=== PATIENT | male | born 1940 | race Caucasian/White ===

== ENCOUNTER 2017-05-21 10:53 | Inpatient (IN) | payer MEDICARE ==
[~2017-05-21] VITALS: Ht 170.2 cm; Wt 108.2 kg
[2017-05-21 11:29] LABS: BASOPHILS 0.2 % (0-2); EOSINOPHILS 1.5 % (0-7); HEMOGLOBIN 12.5 g/dL (13.5-17.5); IMMATURE GRANULOCYTES 0.3 % (0-5); LYMPHOCYTES 23.8 % (15-50); MCH 32.2 pg (26.0-34.0); MCHC 32.9 g/dL (31.0-37.0); MCV 97.9 fL (80.0-100.0); MEAN PLATELET VOLUME 9.3 fL (7.4-10.4); MONOCYTES 9.5 % (2-11); NEUTROPHILS 64.7 % (40-80); PLATELET COUNT 179 10x3/uL (130-400); RBC 3.88 10x6/uL (4.20-6.10); RDW 14.2 % (11.5-14.5); WBC 6.1 10x3/uL (4.8-10.8)
[2017-05-21 12:19] LABS: ANION GAP 9.8 mmol/L (8-16); BILIRUBIN - TOTAL 0.43 mg/dL (0.2-1.3); CALCIUM 8.9 mg/dL (8.5-10.1); CARBON DIOXIDE 31.9 mmol/L (21.0-32.0); CREATININE - SERUM 2.7 mg/dL (0.6-1.3); POTASSIUM - SERUM 4.7 mmol/L (3.5-5.1); PROTEIN - SERUM 7.5 g/dL (6.4-8.2)
--- NOTE | 2017-05-21 16:31 | NUR ---
TRANSFER FROM ER BY STRETCHER. OREINTED TO ROOM. CALL LIGHT IN REACH. WILL CONT. PLAN OF CARE.
[2017-05-21 16:58] VITALS: BP 186/78
[2017-05-21] MEDS ORDERED: CORDARONE200 MG PO (17:03)
[2017-05-21] MEDS ORDERED: COREG 3.1253.125 MG PO (17:05)
[2017-05-21] MEDS ORDERED: FUROSEMIDE40 MG PO (17:05)
[2017-05-21] MEDS ORDERED: CARDURA2 MG PO (17:06)
[2017-05-21] MEDS ORDERED: GLIMEPIRIDE4 MG PO (17:07)
[2017-05-21] MEDS ORDERED: COUMADIN5 MG PO (17:08)
[2017-05-21] MEDS ORDERED: COUMADIN2.5 MG PO (17:10)
[2017-05-21] MEDS ORDERED: LEVEMIR100 U/M1 SC (17:11)
[2017-05-21] MEDS ORDERED: XALATAN 0.0052.5 ML EACH EYE (17:13)
[2017-05-21] MEDS ORDERED: XANAX0.25 MG PO (17:13)
[2017-05-21 17:18] VITALS: BP 186/78; BMI 37.5
[2017-05-21] MEDS ORDERED: AMBIEN5 MG PO (17:42)
[2017-05-21 18:16] LABS: CREATININE - URINE 16.3 mg/dL (30-125); POTASSIUM - URINE 21.7 MMOL/L (12.0-62.0); PRO/CRE RATIO URINE 0.7 mg/g; PROTEIN - URINE 11.2 mg/dL (0.0-11.9)
[2017-05-21 19:09] LABS: APPEARANCE CLEAR (CLEAR); BILIRUBIN NEGATIVE (NEGATIVE); COLOR YELLOW (YELLOW); GLUCOSE NEGATIVE (NEGATIVE); KETONE NEGATIVE (NEGATIVE); LEUKOCYTE ESTERASE NEGATIVE (NEGATIVE); NITRITE NEGATIVE (NEGATIVE); PROTEIN NEGATIVE (NEGATIVE); UROBILINOGEN NORMAL (NORMAL)
--- NOTE | 2017-05-21 19:44 | NUR ---
MARLY HILL SIGN WRITER LETTERER OR PAINTER PAGED FOR CONTINUATION OF HOME MEDS, AWAITING CALL BACK.
[2017-05-21 20:02] VITALS: BP 157/76
--- NOTE | 2017-05-21 21:18 | NUR ---
ANSWERING SERVICE CALLED AGAIN, PAGE OUT TO DR. RASCON. AWAITING CALL BACK.
--- NOTE | 2017-05-21 21:40 | NUR ---
ISIS TORRES APN PAGED, AWAITING CALL BACK.
[2017-05-22 00:35] VITALS: BP 124/62
[2017-05-22 05:38] VITALS: BP 139/74
[2017-05-22 05:46] LABS: BASOPHILS 0.1 % (0-2); EOSINOPHILS 1.6 % (0-7); HEMATOCRIT 39.2 % (42.0-54.0); IMMATURE GRANULOCYTES 0.1 % (0-5); LYMPHOCYTES 27.1 % (15-50); MCH 32.1 pg (26.0-34.0); MCHC 33.2 g/dL (31.0-37.0); MCV 96.8 fL (80.0-100.0); MEAN PLATELET VOLUME 9.9 fL (7.4-10.4); MONOCYTES 10.9 % (2-11); NEUTROPHILS 60.2 % (40-80); PLATELET COUNT 213 10x3/uL (130-400); RBC 4.05 10x6/uL (4.20-6.10); RDW 14.1 % (11.5-14.5); WBC 7.4 10x3/uL (4.8-10.8)
[2017-05-22 06:08] LABS: ALBUMIN 3.8 g/dL (3.4-5.0); ANION GAP 8.4 mmol/L (8-16); BILIRUBIN - TOTAL 0.65 mg/dL (0.2-1.3); CALCIUM 8.8 mg/dL (8.5-10.1); CARBON DIOXIDE 33.4 mmol/L (21.0-32.0); CREATININE - SERUM 2.7 mg/dL (0.6-1.3); PROTEIN - SERUM 7.9 g/dL (6.4-8.2)
[2017-05-22 06:20] LABS: POTASSIUM - SERUM 3.8 mmol/L (3.5-5.1)
--- NOTE | 2017-05-22 07:30 | NUR ---
RECIEVED PT IN BED AAOX4 RESP UNLABORED DENIES ANY NEEDS OR DISCOMFORT NAD NOTED
[2017-05-22 08:23] VITALS: BP 155/70
[2017-05-22 11:36] VITALS: BP 137/67
[2017-05-22 12:32] VITALS: Ht 170.2 cm; Wt 108.2 kg
[2017-05-22 12:38] LABS: INR 2.06 (0.85-1.17); PROTIME 23.2 SECONDS (11.6-15.0)
[2017-05-22 15:49] VITALS: BP 130/69
--- NOTE | 2017-05-22 16:27 | NUR ---
Patient Name: JAZMIN ALVARADO Admission Status: ER Accout number: [id number] Admission Date: 05-21-2017 : 1940 Admission Diagnosis: Attending: LUIS ALFREDO Current LOS: 1 Anticipated DC Date: Planned Disposition: Home Primary Insurance: An[employer] Mobile Discharge Planning Comments: * Is the patient Alert and Oriented? Yes 0 * How many steps to enter\exit or inside your home? O-O/1-I 0 * PCP DR. JW NUNEZ 0 * Pharmacy [facility] ON [address] OR [facility] IN [place] 0 * Preadmission Environment Home with Family 0 * ADLs Independent 0 * Equipment CANE Nebulizer Oxygen Walker 0 * Other Equipment HOME AND PORTABLE OXYGEN UNKNOWN MEDICAL EQUIPMENT PROVIDER 0 * List name and contact numbers for known caregivers / representatives who currently or will assist patient after discharge: ЮЛИЯ ALVARADO, SPOUSE, PATIENTS CELL NUMBER: [phone] 0 * Community resources currently utilized None 0 * Please name any agencies selected above. NONE 0 * Additional services required to return to the preadmission environment? No 0 * Can the patient safely return to the preadmission environment? Yes 0 * Has this patient been hospitalized within the prior 30 days at any hospital? No 0 CM MET WITH PT AND SPUOSE IN ROOM TO DISCUSS DISCHARGE PLANNING AND NEEDS. PT REPORTS LIVING AT HOME INDEPENDENTLY WITH SPOUSE. PT HAS NEBULIZER, HOME AND PORTABLE OXYGEN AND A WALKER AND CANE FROM AN UNKNOWN MEDICAL EQUIPMENT PROVIDER. PT HAS NO OUTSIDE SERVICES ASSISTING IN THE HOME. CM DISCUSSED AVAILABILITY OF HOME HEALTH, REHAB SERVICES AND MEDICAL EQUIPMENT. PT DENIES DISCHARGE NEEDS, REPORTS HIS SPOUSE WILL PICK HIM UP FOR DISCHARGE HOME. Auto Suspension And Steering Mechanic: Alfredito Muñoz
--- NOTE | 2017-05-22 17:07 | NUR ---
FSBS 243 HUMALOG 4 UNITS GIVEN SQ LT ARM
[2017-05-22 19:00] VITALS: BP 150/61
--- NOTE | 2017-05-22 20:14 | NUR ---
RESUMED CARE OF PT, LYING IN BED RESPIRATIONS EVEN AND UNLABORED ON 2LPM ANC. 56 SB ON TELEMETRY. HORNER TO GRAVITY. RIGHT WRIST INFUSING BUMEX @ 10 AND DOBUTAMINE @ 16.3. CALL LIGHT IN REACH. WILL CONITNUE TO MONITOR. SEE NURSE ASSESSMENT.
--- NOTE | 2017-05-22 23:43 | NUR ---
LYING IN BED, CALL LIGHT IN REACH. WILL CONTINUE TO MONITOR.
[2017-05-23] VITALS: BP 139/69
[2017-05-23 04:00] VITALS: BP 122/65
[2017-05-23 06:46] LABS: BASOPHILS 0.1 % (0-2); EOSINOPHILS 1.8 % (0-7); HEMOGLOBIN 13.1 g/dL (13.5-17.5); IMMATURE GRANULOCYTES 0.4 % (0-5); LYMPHOCYTES 23.5 % (15-50); MCH 31.6 pg (26.0-34.0); MCHC 32.8 g/dL (31.0-37.0); MCV 96.6 fL (80.0-100.0); MEAN PLATELET VOLUME 9.9 fL (7.4-10.4); MONOCYTES 13.3 % (2-11); NEUTROPHILS 60.9 % (40-80); PLATELET COUNT 233 10x3/uL (130-400); RBC 4.14 10x6/uL (4.20-6.10); RDW 13.8 % (11.5-14.5); WBC 7.7 10x3/uL (4.8-10.8)
[2017-05-23 07:27] LABS: INR 2.21 (0.85-1.17); PROTIME 24.6 SECONDS (11.6-15.0)
[2017-05-23 07:28] LABS: ALBUMIN 3.6 g/dL (3.4-5.0); ANION GAP 8.4 mmol/L (8-16); BILIRUBIN - TOTAL 0.72 mg/dL (0.2-1.3); CALCIUM 8.4 mg/dL (8.5-10.1); CARBON DIOXIDE 34.2 mmol/L (21.0-32.0); CHOL - HDL RATIO 5.9 ratio (2.3-4.9); CREATININE - SERUM 3.1 mg/dL (0.6-1.3); LDL-HDL RATIO 3.6 ratio (1.5-3.5); POTASSIUM - SERUM 3.6 mmol/L (3.5-5.1); PROTEIN - SERUM 7.8 g/dL (6.4-8.2)
[2017-05-23 07:29] LABS: D-DIMER-QUANTITATIVE 0.64 ug/mLFEU (0.20-0.54)
[2017-05-23 07:31] LABS: HEMOGLOBIN A1C 7.4 % (4.8-6.0)
--- NOTE | 2017-05-23 08:00 | NUR ---
FSBS 191 HUMALOG 2 UNITS GIVEN SQ RT ARM
[2017-05-23 08:25] VITALS: BP 164/91
--- NOTE | 2017-05-23 09:41 | EC ---
PATIENT:JAZMIN ALVARADO DATE OF SERVICE: 05/21/17 SEX: M MEDICAL RECORD: [id number] DATE OF : 36 LOCATION:D.M2 D.211 AGE OF PATIENT: 76 ADMISSION DATE: 05/21/17 REFERRING PHYSICIAN: INTERPRETING PHYSICIAN: JAY JAY HAM MD ECHOCARDIOGRAM REPORT ECHO CHARGES 4 ECHO COMPLETE CLINICAL DIAGNOSIS: CHF H/O AVR ECHOCARDIOGRAPHIC MEASUREMENTS (adult normal given) AC root (d.<3.7cm) 3.6 cm LV Septum d (<1.2 cm> 1.2 cm Valve Excursion 1.2 cm LV Septum (systole) 1.9 cm Left Atria (s.<4.0cm> 4.5 cm LVPW d(<1.2cm) 1.2 cm RV (d.<2.3cm) 2.7 cm LVPW (sytole) 1.5 cm LV diastole(<5.6CM) 5.1 cm MV E-F(>70mm/sec) cm LV systole 3.2 cm LVOT Diameter 1.9 cm MV exc.(>10mm) cm Est.ejection fraction (50-75%) % Pericardial Effusion N DOPPLER: LVIT cm/sec A 36.0 cm/sec E 133 cm/sec LA cm/sec RVSP 49.2 mmHg LVOT 219 cm/sec AOP1/2T m/s Asc. Ao 280 cm/sec RVOT 82.0 cm/sec RA cm/sec PA 131 cm/sec AV Gradient Peak 31.4 mmHg AV Mean 14.4 mmHg AV Area 2.0 cm MV Gradient Peak 8.3 mmHg MV Mean 1.9 mmHg MV Area cm COMMENTS: Groutman: Abbie ZAVALAOE Spanish Language Lecturer: 1 Dr. Ham TAPE# PACS DATE OF SERVICE: 05/21/2017 Echocardiogram FINDINGS: 1. Left ventricular chamber size is within normal limits. Left ventricular systolic function is mildly reduced, overall ejection fraction 40%. 2. Left atrium is enlarged at 4.5 cm. Right atrium and right ventricular chamber sizes are as well mildly dilated. 3. Valvular structures: Aortic valve with present mechanical prosthesis that ECHOCARDIOGRAM REPORT [id number] JAZMIN ALVARADO has normal structure and function in this position. 4. Doppler interrogation reveals mild mitral regurgitation, moderate tricuspid regurgitation, no other valvular insufficiency or stenosis; however, pulmonary systolic pressure is elevated estimated at 49 mmHg. 5. No evidence of pericardial effusion or left ventricular thrombus. TRANSINT:[id number] Voice Confirmation ID: [id number] DOCUMENT ID: [id number] JAY JAY HAM MD at 0941 CC: [id number] DICTATION DATE: 05/22/17 1033 GED INSTRUCTOR: 05/22/17 1316 ADM IN [id number] [place] [address]
--- NOTE | 2017-05-23 09:41 | CN ---
PATIENT NAME:JAZMIN KNOX MEDICAL RECORD: [id number] : 36 LOCATION:D. D.2117 ADMIT DATE: 05/21/17 ACCOUNT: [id number] CONSULTING PHYSICIAN: JAY JAY LABOY MD REFERRING PHYSICIAN: TAMMY RASCON MD DATE OF CONSULTATION: 05/21/2017 DIAGNOSES: 1. Congestive heart failure. 2. Chronic systolic dysfunction. 3. Cardiomyopathy. 4. Coronary artery disease. 5. Previous coronary artery bypass graft surgery. 6. Previous cardiac stent. 7. Renal insufficiency. 8. Hypertension. 9. Coumadin anticoagulation. HISTORY OF PRESENT ILLNESS: Mr. Knox has a past history of cardiomyopathy, chronic systolic dysfunction and congestive heart failure. He now presents with increasing shortness of breath and increasing lower extremity edema. His chest x-ray is compatible with pulmonary edema. He is not having any chest pain or chest discomfort compatible with angina. Troponin is pending. PHYSICAL EXAMINATION: GENERAL APPEARANCE: Well-nourished, well-developed, appears stated age. Level of distress, comfortable. PSYCHIATRIC: Mental status, alert, normal affect. Orientation, oriented to time, place and person. EYES: Lids and conjunctiva, noninjected. No discharge, no pallor. ENT: Lips, teeth, gums, normal dentition. Oropharynx, no cyanosis, no pallor. NECK: Carotid arteries, bilateral normal upstroke, no bruits, no thrills. JUGULAR VEINS: No jugular venous pressure or distention. CERVICAL LYMPH NODES: Nontender, nonenlarged. THYROID: Not enlarged. Nontender. No nodules. LUNGS: Respiratory effort, unlabored. CHEST: Normal curvature. No thoracic deformity. No chest wall tenderness. Percussion, resonant. Auscultation, clear. No wheezes, no rales, no rhonchi. CARDIOVASCULAR: Precordial exam, nondisplaced. No heaves or pericardial thrills. Rate and rhythm, regular. Heart sounds, normal S1, normal S2. No S3, no gallop, no rub. Systolic murmur, not heard. Diastolic murmur, not heard. EXTREMITIES: No cyanosis, no edema. Peripheral pulses, full and equal in all extremities, except as noted. No bruits appreciated. ABDOMEN: Soft, nondistended. Normal aorta. No bruit. Nontender. No masses. Liver, nontender, no hepatomegaly. Spleen, nontender, no splenomegaly. MUSCULOSKELETAL: No joint tenderness. No joint swelling. No erythema. NEUROLOGICAL: Normal gait, normal strength, normal tone. SKIN: Warm and dry. REVIEW OF SYSTEMS: The patient reports easy bruising but reports no swollen glands. The patient reports no fever, no night sweats, no significant weight gain, no significant weight loss. No significant exercise tolerance. The patient reports no dry eyes, no irritation, no vision change. Patient reports no difficulty hearing and no ear pain. Patient reports no frequent nose bleeds or nose and sinus problems. Patient reports on arm pain on exertion. No CONSULT REPORT [id number] GOODNER,JAZMIN RAY shortness of breath while lying down. No history of heart murmur. Patient reports no cough, no wheezing or coughing up blood. Patient reports no abdominal pain, no vomiting. Normal appetite. No diarrhea and not vomiting blood. No nausea and no constipation. Patient reports no incontinence. No difficulty urinating. No hematuria. No increased frequency. Patient reports no muscle aches. No weakness, no arthralgias, no back pain. No swelling of the extremities. Patient reports no abnormal mole, no jaundice, no rashes. Reports no loss of consciousness. No weakness and no numbness. No seizures, dizziness, or headaches. The patient reports no depression, no sleep disturbance, feeling safe in a relationship and no alcohol abuse. Patient reports on fatigue. Reports no runny nose or sinus pressure. No itching, no hives, and no frequent sneezing. OVERALL IMPRESSION: Congestive heart failure, chronic systolic dysfunction. At this time, we will start him on IV Lasix, IV dobutamine, get an echocardiogram. Most likely, we will not have to proceed with coronary angiography, especially due to renal dysfunction with BUN of 15 and creatinine of 2.7. TRANSINT:[id number] Voice Confirmation ID: [id number] DOCUMENT ID: [id number] JAY JAY LABOY MD at 0941 CC: [id number] DICTATION DATE: 05/21/17 125 ADULT SCHOOL COUNSELOR: 05/21/17 1656 ADM IN [id number] [place] [address]
--- NOTE | 2017-05-23 11:59 | NUR ---
FSBS 297 HUMALOG 6 UNITS GIVEN SQ LT ARM
[2017-05-23 12:04] VITALS: BP 157/75
[2017-05-23 14:30] VITALS: BP 147/85
--- NOTE | 2017-05-23 17:19 | NUR ---
FSBS 250 HUMALOG 4 UNITS GIVEN SQ LT ARM
[2017-05-23 19:00] VITALS: BP 141/67
[2017-05-24 04:00] VITALS: BP 133/75
[2017-05-24 07:54] LABS: BASOPHILS 0 % (0-2); HEMATOCRIT 39.2 % (42.0-54.0); HEMOGLOBIN 13.3 g/dL (13.5-17.5); IMMATURE GRANULOCYTES 0.5 % (0-5); LYMPHOCYTES 26.9 % (15-50); MCH 32.2 pg (26.0-34.0); MCHC 33.9 g/dL (31.0-37.0); MCV 94.9 fL (80.0-100.0); MEAN PLATELET VOLUME 9.8 fL (7.4-10.4); MONOCYTES 10.6 % (2-11); PLATELET COUNT 205 10x3/uL (130-400); RBC 4.13 10x6/uL (4.20-6.10); RDW 13.6 % (11.5-14.5)
[2017-05-24 07:57] LABS: WBC 5.7 10x3/uL (4.8-10.8)
[2017-05-24 08:11] LABS: ALBUMIN 3.4 g/dL (3.4-5.0); ANION GAP 10.4 mmol/L (8-16); BILIRUBIN - TOTAL 0.49 mg/dL (0.2-1.3); CALCIUM 8.5 mg/dL (8.5-10.1); CARBON DIOXIDE 33.3 mmol/L (21.0-32.0); CREATININE - SERUM 2.9 mg/dL (0.6-1.3); POTASSIUM - SERUM 3.7 mmol/L (3.5-5.1); PROTEIN - SERUM 7.6 g/dL (6.4-8.2)
[2017-05-24 08:22] VITALS: BP 131/75
[2017-05-24 12:09] VITALS: BP 145/77
--- NOTE | 2017-05-24 12:30 | NUR ---
HORNER CATH DCD WITH 600CCOP. AND 10CC BULB. WILL MONITOR VOID.
[2017-05-24] MEDS ORDERED: FLOMAX0.4 MG PO ×2 (14:15→14:21)
--- NOTE | 2017-05-24 15:13 | NUR ---
IV AND TELEMETRY DCD. DC PLANS GIVEN. UNDERSTANDING VOICED. ESCORTED TO CAR BY W/C.
== END 2017-05-24 15:14 | disposition home or self-care (01) | DRG 292 ==
LOC: D.ER 10:53 → D.M2 14:51
PROVIDERS: Emergency Medicine; Internal Medicine; Internal Medicine Interventional Cardiology; ADMIT Emergency Medicine
PROC: 0T9B70Z Drainage of Bladder with Drainage Device, Via Natural or Artificial Opening (ICD-10-PCS; principal; 2017-05-21)
DX: I11.0 Hypertensive heart disease with heart failure (principal); N17.9 Acute kidney failure, unspecified; I50.22 Chronic systolic (congestive) heart failure; I42.9 Cardiomyopathy, unspecified; I25.10 Atherosclerotic heart disease of native coronary artery without angina pectoris; Z95.5 Presence of coronary angioplasty implant and graft; Z95.1 Presence of aortocoronary bypass graft; D64.9 Anemia, unspecified; N40.1 Benign prostatic hyperplasia with lower urinary tract symptoms; Z79.01 Long term (current) use of anticoagulants; I08.1 Rheumatic disorders of both mitral and tricuspid valves; Z79.4 Long term (current) use of insulin; I27.2 Other secondary pulmonary hypertension; E11.21 Type 2 diabetes mellitus with diabetic nephropathy

== ENCOUNTER 2017-07-30 08:39 | Outpatient (CLI) | payer MEDICARE ==
[2017-05-22 12:32] VITALS: BMI 36.9
--- NOTE | ~2017-07-30 | HEMODYNAMI ---
PATIENT:JAZMIN ALVARADO MEDICAL RECORD: [id number] : 36 LOCATION:[facility]CAT ADMISSION DATE: 07/30/17 Generatedon:07/30/201712:01 Patient name: JAZMIN ALVARADO Patient #: [id number] SSN: D OB: 1940 Date of study: 07/30/2017 Page: Of Hemodynamic Procedure Report Patient Data Patient Demographics Procedure consent was obtained First Name: JAZMIN Gender: Male Last Name: CHRISTIANO : 1940 Middle Initial: RAY Age: 76 year(s) Patient #: [id number] Race: Unknown Additional ID: [id number] Contact details [address]: [address] [place] [address] State: [place] City: [place] Zip code: [address] Past Medical History Allergies: No known allergies Admission Admission Data Admission Date: 07/30/2017 Admission Time: 8:39 Procedure Procedure Types Cath Procedure Diagnostic Procedure LHC Coronaries w/Grafts PCI Procedure Coronary Stent Initial Miscellaneous Procedures Moderate Sedation up to 30 minutes Procedure Description Procedure Date Procedure Date: 07/30/2017 Procedure Start Time: 11:28 Procedure End Time: 12:00 Procedure Staff Name Function Aung Ham MD Performing Physician Cam Heart RT Scrub Carlitos Cervantes RN Nurse Kassandra Sanchez RT Monitor Procedure Data Cath Procedure Fluoroscopy Diagnostic fluoroscopy Total fluoroscopy Time: time: 13.2 min 13.2 min Diagnostic fluoroscopy Total fluoroscopy dose: 789 dose: 789 mGy mGy Contrast Material Contrast Material Type Amount (ml) Isovue 300 165 Entry Location Entry Primary Successful Side Size Upsize Upsize Entry Closure Succes sful Closure Location (Fr) 1 (Fr) 2 (Fr) Remarks Device Remarks Femoral Right 6 Fr Exoseal artery Short Estimated blood loss: 10 ml Diagnostic catheters Device Type Used For End Catheter Placement Cordis 5Fr Pigtail LV Angiography Catheter (MP) Cordis 5Fr JL 4.0 Left Coronary Catheter (MP) Angiography Cordis 5Fr 3DRC Catheter Internal mammary (MP) arteriography Cordis 5Fr 3DRC Catheter Right Coronary (MP) Angiography Diagnostic Infinity 5Fr SVG Angiography AR 2 MOD catheter Procedure Complications No complications Procedure Medications Medication Administration Route Dosage Oxygen NC 2 l/min Lidocaine 2% added to field 20 Heparin Flush Bag added to field 2 bags (1000units/500ml NS) 0.9% NaCl I.V. 100 ml/hr Versed I.V. 2 mg Fentanyl I.V. 100 mcg Versed I.V. 1 mg Fentanyl I.V. 50 mcg Heparin Bolus I.V. 5000 units Versed I.V. 1 mg Fentanyl I.V. 50 mcg Hemodynamics Rest Heart Rate: 64 (bpm) Snapshots Pre Cath Intra NCS Post Cath Vital Signs Time Heart Resp SPO2 etCO2 NIBP (mmHg) Rhythm Pain Sedation Rate (ipm) (%) (mmHg) Status Level (bpm) 11:14:44 62 18 98 0 165/82(129) NSR 0 (11) 10(A) , No pain 11:19:12 65 17 100 45.1 167/82(140) NSR 0 (11) 10(A) , No pain 11:23:36 57 26 100 39.8 149/77(121) NSR 0 (11) 10(A) , No pain 11:28:02 55 17 98 47.4 131/74(109) NSR 0 (11) 10(A) , No pain 11:32:16 54 18 100 45.8 130/67(103) NSR 0 (11) 9(A) , No pain 11:36:37 56 17 99 37.6 124/61(94) NSR 0 (11) 9(A) , No pain 11:40:57 56 16 99 43.6 115/60(86) NSR 0 (11) 9(A) , No pain 11:45:15 61 17 99 42.9 117/57(93) NSR 0 (11) 9(A) , No pain 11:49:27 57 17 100 0 111/62(98) NSR 0 (11) 9(A) , No pain 11:53:43 53 17 100 0 121/60(94) NSR 0 (11) 10(A) , No pain 11:58:42 57 6 99 44.3 Measuring NSR 0 (11) 10(A) , No pain 11:58:54 61 6 99 42 132/64(102) NSR 0 (11) 10(A) , No pain Medications Time Medication Route Dose Verified Delivered Reason Notes Effectiveness by by 11:20:52 Oxygen NC 2 Aung Buffie used for l/min Jitendra Cervantes RN procedure 11:20:58 Lidocaine 2% added 20ml Aung Aung for local to vial Jitendra Ham MD anesthetic field 11:21:03 Heparin Flush added 2 Aung Aung used for Bag to bags Jitendra Ham MD procedure (1000units/500ml field NS) 11:21:12 0.9% NaCl I.V. 100 Aung Buffie Per physician ml/hr Jitendra Cervantes RN 11:28:55 Versed I.V. 2 mg Aung Buffie for sedation Jitendra Cervantes RN 11:29:01 Fentanyl I.V. 100 Aung Buffie for sedation mcg Jitendra Cervantes RN 11:34:45 Versed I.V. 1 mg Aung Buffie for sedation Jitendra Cervantes RN 11:34:50 Fentanyl I.V. 50 Aung Buffie for sedation mcg Jitendra Cervantes RN 11:38:50 Heparin Bolus I.V. 5000 Aung Buffie for verifi ed units Jitendra Cervantes RN anticoagulation with dr ham 11:42:16 Fentanyl I.V. 50 Aung Buffie for sedation mcg Jitendra Cervantes RN 11:42:20 Versed I.V. 1 mg Aung Buffie for sedation Jitendra Cervantes RN Procedure Log Time Note 11:01:41 Cam Heart RT(R) (CV) sent for patient. Start room use. 11:01:42 Time tracking: Regular hours 11:01:45 Plan of Care:Hemodynamics will remain stable., Cardiac rhythm will remain stable., Comfort level will be maintained., Respiratory function will remain adequate., Patient/ family verbilizes understanding of procedure., Procedure tolerated without complication., Recovers from procedure without complications.. 11:07:48 Patient received from ED to CCL 3 Alert and oriented. Tansferred to table in Supine position. 11:07:49 Warm blankets applied, and jacobo hugger turned on for patient comfort. 11:07:50 Correct patient and procedure confirmed by team. 11:07:50 Signed procedure consent form obtained from patient. 11:07:51 ECG and BP/O2 sat monitors applied to patient. 11:07:52 Full Disclosure recording started 11:13:20 Vital chart was started 11:13:21 Baseline sample Acquired. 11:13:27 Rhythm: sinus rhythm 11:15:21 H&P Date Dictated: 07/30/2017 ER History on chart.. 11:15:23 Pre-procedure instructions explained to patient. 11:15:24 Pre-op teaching completed and patient verbalized understanding. 11:15:25 Family in waiting room. 11:15:28 Patient NPO since Midnight. 11:15:35 Patient allergic to No known allergies 11:15:39 Is the patient allergic to Iodine/contrast media? No. 11:15:52 Is patient on blood thinner?Yes 11:15:56 ACC The patient was administered the following blood thiners within the last 24 hours: ACCPlavix 11:16:00 Patient diabetic? Yes. 11:16:01 If diabetic: On Metformin? No 11:16:05 Previous problem with sedation/anesthesia? No ? 11:16:08 Snore? Yes 11:16:09 Sleep apnea? Yes 11:16:10 Deviated septum? No 11:16:10 Opens mouth fully? Yes 11:16:11 Sticks out tongue? Yes 11:16:20 Airway obstruction? No ? 11:16:24 Dentures? No ? 11:16:41 Pre procedure: right dorsailis pedis pulse 2+ Normal; easily identifiable; not easily obliterated 11:16:43 Patient pain scale 0/10 ?. 11:16:49 IV patent on arrival in left forearm with 0.9% NaCl at O. 11:16:56 Lab results completed and on chart. 11:17:21 Right groin area was prepped with chlora-prep and draped in sterile fashion 11:17:22 Alarms reviewed by R. N. 11:17:22 Sharps counted by scrub and verified by R.N. 11:17:27 Use device set Femoral Dx 11:17:28 Acist Syringe opened to sterile field. 11:17:29 Bag Decanter opened to sterile field. 11:17:29 Medline Cath Pack opened to sterile field. 11:17:30 St Shorty 260cm J .035 wire opened to sterile field. 11:17:31 Acist Hand Control opened to sterile field. 11:17:32 Acist Manifold opened to sterile field. 11:17:32 Diagnostic Infinity 5Fr Multipack catheter opened to sterile field. 11:17:34 Tegaderm 4 x 4 opened to sterile field. 11:17:51 IV Extension Set opened to sterile field. 11:20:52 Oxygen 2 l/min NC was administered by Carlitos Cervantes RN; used for procedure; 11:20:58 Lidocaine 2% 20ml vial added to field was administered by Aung Ham MD; for local anesthetic; 11:21:03 Heparin Flush Bag (1000units/500ml NS) 2 bags added to field was administered by Aung Ham MD; used for procedure; 11:21:12 0.9% NaCl 100 ml/hr I.V. was administered by Carlitos Cervantes RN; Per physician; 11:23:39 Physician paged 11:27:24 Zero performed for pressure channel P1 11:27:28 Final Timeout: patient, procedure, and site verified with staff and physician. All members of the team are in agreement. 11:27:30 Right groin site verified by team. 11:27:32 Physical assessment completed. ASA score P 2 - A patient with mild systemic disease as per Aung Ham MD. 11:27:35 Sedation plan: IV Moderate Sedation Versed, Fentanyl 11:28:49 Procedure started. 11:28:52 Local anesthetic to right femoral artery with Lidocaine 2% by Aung Ham MD.INITIAL ACCESS ONLY 11:28:55 Versed 2 mg I.V. was administered by Carlitos Cervantes RN; for sedation; 11::01 Fentanyl 100 mcg I.V. was administered by Carlitos Cervantes RN; for sedation; 11:29:05 A 6 Fr Short sheath was inserted into the Right Femoral artery 11:29:18 Terumo 6Fr Ashuelot Sheath opened to sterile field. 11:30:42 A Cordis 5Fr Pigtail Catheter (MP) was advanced over the wire and used for LV Angiography. REMOVED. PATIENT HAS MECHANICAL VALVE 11:31:43 A Cordis 5Fr JL 4.0 Catheter (MP) was advanced over the wire and used for Left Coronary Angiography. 11:32:32 Catheter removed. 11:32:38 A Cordis 5Fr 3DRC Catheter (MP) was advanced over the wire and used for Internal mammary arteriography.LAD 11:34:45 Versed 1 mg I.V. was administered by Carlitos Cervantes RN; for sedation; 11:34:50 Fentanyl 50 mcg I.V. was administered by Carlitos Cervantes RN; for sedation; 11:35:35 A Cordis 5Fr 3DRC Catheter (MP) was advanced over the wire and used for Right Coronary Angiography. 11:36:27 Jarrell SceneDocisper J 300cm 0.014 guide wire opened to sterile field. 11:36:36 Fandeavor BasixCompak Inflation Kit opened to sterile field. 11:36:47 Sangamo BioSciencest[employer] Launcher 6Fr AR 2.0 SH guide catheter opened to sterile field. 11:38:26 A Diagnostic Infinity 5Fr AR 2 MOD catheter was advanced over the wire and used for SVG Angiography. UNABLE TO LOCATE ANY VEIN GRAFTS 11:38:38 6 Fr AR 2.0 SH guide catheter was inserted over the wire 11:38:50 Heparin Bolus 5000 units I.V. was administered by Carlitos Cervantes RN; for anticoagulation; verified with dr ham 11:39:13 Procedure type changed to Cath procedure, Diagnostic procedure, LHC, Coronaries w/Grafts, PCI procedure, Coronary Stent Initial, Miscellaneous Procedures, Moderate Sedation up to 30 minutes 11:40:37 WHISPER wire advanced. 11:42:16 Fentanyl 50 mcg I.V. was administered by Carlitos Cervantes RN; for sedation; 11:42:20 Versed 1 mg I.V. was administered by Carlitos Cervantes RN; for sedation; 11:44:36 Inflation number: 1 A Euphora 2.0 x 30 Balloon was prepped and advanced across the Prox RCA, then inflated to 17 RINA for 0:10 (min:sec). 11:44:50 Balloon removed over the wire. 11:46:57 Inflation number: 2 A Euphora 1.5 x 20 Balloon was prepped and advanced across the Prox RCA, then inflated to 21 RINA for 0:07 (min:sec). 11:47:02 Inflation number: 3 The Euphora 1.5 x 20 Balloon was reinflated across the Prox RCA, to 21 RINA for 0:04 (min:sec). 11:47:11 Inflation number: 4 The Euphora 1.5 x 20 Balloon was reinflated across the Prox RCA, to 21 RINA for 0:04 (min:sec). 11:47:31 Inflation number: 5 The Euphora 1.5 x 20 Balloon was reinflated across the Prox RCA, to 21 RINA for 0:04 (min:sec). 11:47:45 Balloon removed over the wire. 11:49:44 Inflation number: 6 The Euphora 2.0 x 30 Balloon was reinflated across the Prox RCA, to 17 RINA for 0:06 (min:sec). 11:50:06 Inflation number: 7 The Euphora 2.0 x 30 Balloon was reinflated across the Prox RCA, to 9 RINA for 0:05 (min:sec). 11:52:13 Inflation Number: 8 A Kanaranzi OTW 2.25 x 34 stent was prepped and advanced across the Prox RCA. The stent was deployed at 11 RINA for 0:06 (min:sec). 11:52:39 Stent catheter was removed intact over wire. 11:54:34 Inflation Number: 9 A Bryon OTW 2.25 x 15 stent was prepped and advanced across the Prox RCA. The stent was deployed at 13 RINA for 0:03 (min:sec). 11:55:00 Stent catheter was removed intact over wire. 11:55:01 Wire removed. 11:55:01 Guide catheter removed. 11:55:07 Sheath removed intact; hemostasis achieved with Exoseal to the Right Femoral artery. 11:55:14 Cordis 6Fr Exoseal opened to sterile field. 11:55:16 Procedure ended.(Physican Out) 11:55:30 Fluoroscopy time 13.20 minutes. 11:55:38 Fluoroscopy dose: 789 mGy 11:55:38 Flurop Dose total: 789 11:55:41 Contrast amount:Isovue 300 165ml. 11:55:42 Sharps counted by scrub and verified by R.N. 11:55:43 Insertion/operative site no bleeding no hematoma. 11:55:46 Post-op/insertion site Right Femoral artery dressed using a 4 x 4 and Tegaderm. 11:55:49 Post right femoral artery:stable, clean and dry 11:55:51 Post Procedure Pulses reassessed and unchanged 11:55:58 Post-procedure physical assessment completed. ASA score P 2 - A patient with mild systemic disease as per Aung Ham MD. 11:56:00 Post procedure rhythm: unchanged. 11:56:04 Estimated blood loss: 10 ml 11:56:05 Post procedure instruction explained to patient.Patient verbalizes understanding. 11:56:05 Patient needs reinforcement of post procedure teaching. 11:56:10 Procedure Complication : No complications 11:56:12 See physician's report for complete and final results. 11:59:28 Procedure and supply charges have been captured, reviewed, submitted and are correct. 12:00:25 Vital chart was stopped 12:00:27 Report given to Pre/Post Procedure Room. 12:00:30 Patient transfered to Pre/Post Procedure Room with Stretcher. 12:00:38 Procedure ended. 12:00:38 Full Disclosure recording stopped 12:00:43 End room use (Document Last) Intervention Summary Intervention Notes Time ActionType Lesion and Equipment Action# Pressure Duration Attributes Used 11:44:36 Inflate Prox RCA Euphora 1 17 00:10 balloon 2.0 x 30 Balloon 11:46:57 Inflate Prox RCA Euphora 2 21 00:07 balloon 1.5 x 20 Balloon 11:47:02 Reinflate Prox RCA Euphora 3 21 00:04 balloon 1.5 x 20 Balloon 11:47:11 Reinflate Prox RCA Euphora 4 21 00:04 balloon 1.5 x 20 Balloon 11:47:31 Reinflate Prox RCA Euphora 5 21 00:04 balloon 1.5 x 20 Balloon 11:49:44 Reinflate Prox RCA Euphora 6 17 00:06 balloon 2.0 x 30 Balloon 11:50:06 Reinflate Prox RCA Euphora 7 9 00:05 balloon 2.0 x 30 Balloon 11:52:13 Place stent Prox RCA Kanaranzi OTW 8 11 00:06 2.25 x 34 stent 11:54:34 Place stent Prox RCA Kanaranzi OTW 9 13 00:03 2.25 x 15 stent Device Usage Item Name Manufacture Quantity Catalog Hospital Part Current Minimal Lot# / Number Charge Number Stock Stock Serial# Code Acist Acist 1 48531 538645 348231 719582 20 Syringe [employer] Bag Microtek 1 2002S 113695 69472 347250 5 Axial [employer]. Medline Cardinal 1 [id number] 211946 76007 437690 EverConnect [facility] [address] Shorty 1 640166 140867 041358 091004 30 260cm J .035 wire Acist Hand Acist 1 30076 919813 358046 699357 5 Control Medical Systems Inc Acist Acist 1 03567 774251 110194 535480 5 Up Health [facility] Mindmancer Systems Inc Diagnostic Cardinal 1 [id number] 195206 45414 696862 30 Infinity Health 5Fr Multipack catheter Tegaderm 4 3M 1 1626W 075407 407541 508700 5 x 4 IV Hospira 1 10805-42 243630 99498 206558 5 Extension Set Terumo 6Fr Terumo 1 [id number] 272584 746823 612620 40 Ashuelot Sheath Cordis 5Fr Cardinal 1 565196 5 Pigtail Health Catheter (MP) Cordis 5Fr Cardinal 1 331854 5 JL 4.0 Health Catheter (MP) Cordis 5Fr Cardinal 1 868095 5 3DRC Health Catheter (MP) Jarrell Jarrell 1 [id number] 243611 537163 657624 5 Whisper J Vascular 300cm 0.014 guide wire Merit Merit 1 LH5998 151128 250459 090378 15 [facility] Medical Inflation Kit Medtronic Medtronic 1 [id number] 172637 54814 167570 1 Launcher 6Fr AR 2.0 SH guide catheter Diagnostic Cardinal 1 [id number] 824701 494313 267188 20 Infinity Health 5Fr AR 2 MOD catheter Euphora 2.0 Medtronic 1 [id number] 572434 827207 783522 5 [id number] x 30 Balloon Euphora 1.5 Medtronic 1 [id number] 719829 796925 468104 5 [id number] x 20 Balloon Bryon OTW Medtronic 1 [id number] 796247 29087 546879 5 [id number] 2.25 x 34 stent Kanaranzi OTW Medtronic 1 [id number] 698037 34687 565217 5 [id number] 2.25 x 15 stent Cordis 6Fr Cardinal 1 EX600 763115 011208 [address] [place] [address] [employer] Signature Audit [place] Stage Time Signature Unsigned Intra-Procedure 07/30/2017 Kassandra 12:00:58 PM Counts RT(R) Signatures Monitor : Kassandra Signature : Counts RT Date : Time : [address] [address]
[~2017-07-30 08:39] MED LIST: AMBIEN5 MG PO; CARDURA2 MG PO; CORDARONE200 MG PO; COREG 3.1253.125 MG PO; COUMADIN2.5 MG PO; COUMADIN5 MG PO; FLOMAX0.4 MG PO; FUROSEMIDE40 MG PO; GLIMEPIRIDE4 MG PO; LEVEMIR100 U/M1 SC; XALATAN 0.0052.5 ML EACH EYE; XANAX0.25 MG PO
[2017-07-30 09:18] LABS: BASOPHILS 0.2 % (0-2); EOSINOPHILS 1.3 % (0-7); HEMATOCRIT 37.4 % (42.0-54.0); HEMOGLOBIN 12.2 g/dL (13.5-17.5); IMMATURE GRANULOCYTES 0.2 % (0-5); LYMPHOCYTES 19.6 % (15-50); MCH 32.3 pg (26.0-34.0); MCHC 32.6 g/dL (31.0-37.0); MCV 98.9 fL (80.0-100.0); MEAN PLATELET VOLUME 9.7 fL (7.4-10.4); NEUTROPHILS 66.7 % (40-80); PLATELET COUNT 228 10x3/uL (130-400); RBC 3.78 10x6/uL (4.20-6.10); RDW 13.8 % (11.5-14.5); WBC 6.3 10x3/uL (4.8-10.8)
[2017-07-30 09:40] LABS: APTT 27.2 SECONDS (22.8-39.4); INR 1.08 (0.85-1.17); PROTIME 13.8 SECONDS (11.6-15.0)
[2017-07-30 09:42] LABS: ALBUMIN 3.9 g/dL (3.4-5.0); ALKALINE PHOSPHATASE 121 U/L (46-116); ALT (SGPT) 26 U/L (10-68); BILIRUBIN - TOTAL 0.75 mg/dL (0.2-1.3); CALC OSMOLALITY 304 mosm/kg (275-300); CALCIUM 9.3 mg/dL (8.5-10.1); CARBON DIOXIDE 29.6 mmol/L (21.0-32.0); CHLORIDE - SERUM 99 mmol/L (98-107); CREATININE - SERUM 3.4 mg/dL (0.6-1.3); GLUCOSE 179 mg/dL (74-106); POTASSIUM - SERUM 4.4 mmol/L (3.5-5.1); PROTEIN - SERUM 7.5 g/dL (6.4-8.2); SODIUM 139 mmol/L (136-145); UREA NITROGEN 77 mg/dL (7-18); eGFR NON AFRICAN AMERICAN 19 mL/min (90-120)
[2017-07-30 09:51] LABS: CREATINE KINASE 191 UL (21-232); PRO BNP 1738 pg/mL (0-450)
[2017-07-30 09:52] LABS: TROPONIN-I < 0.017 ng/mL (0.000-0.060)
[2017-07-30] MEDS ORDERED: PLAVIX75 MG PO (12:16)
--- NOTE | 2017-08-01 16:56 | OP ---
PATIENT NAME: JAZMIN ALVARADO MEDICAL RECORD: [id number] :36 LOCATION:D.CAT ADMISSION DATE: SURGEON: JAY JAY LABOY MD DATE OF OPERATION: 07/30/2017 DATE OF SERVICE: 07/30/2017 PROCEDURES: 1. PTCA stent RCA. 2. Left heart catheterization. 3. Selective coronary angiography. 4. Vein graft angiography. 5. CRYSTAL angiography. PROCEDURE IN DETAIL: After informed consent was obtained and after a detailed explanation of the risks, benefits as well as alternative therapies, the patient elected to proceed with angiogram and angioplasty. The right femoral area was prepped and draped in normal sterile fashion. The right femoral artery was cannulated via modified Seldinger technique with placement of 6-Telugu sheath. All catheters exchanged through this sheath. FINDINGS: The left ventriculogram was not performed secondary to mechanical aortic valve. SELECTIVE CORONARY ANGIOGRAPHY: 1. Left main showed no significant angiographic disease. 2. Left anterior descending is totally occluded proximally. 3. Left circumflex is totally occluded proximally. 4. Right coronary is patent, previously he was told that this was totally occluded. There is 90% stenosis at the ostium. Multiple 80% and 90% stenosis throughout the mid vessel. 5. CRYSTAL to the LAD is patent. No other grafts are patent. Distal LAD is patent. PTCA STENT OF THE RCA: The stent used was a 2.25 x 34 and 2.25 x 15, both Hume stents. Result was 0% residual stenosis. OVERALL IMPRESSION: Successful percutaneous transluminal coronary angioplasty stent of the RCA going from multiple areas of 90% initial stenosis to 0% residual. TRANSINT:[id number] Voice Confirmation ID: [id number] DOCUMENT ID: [id number] JAY JAY LABOY MD at 1656 CC: [id number] DICTATION DATE: 07/30/17 1202 CARE ANALYST: 07/30/17 1313 DEP CLI 07/30/17 [address] [place] [address]
--- NOTE | 2017-08-01 16:56 | CN ---
PATIENT NAME:JAZMIN KNOX MEDICAL RECORD: [id number] : 36 LOCATION:[facility] ADMIT DATE: ACCOUNT: [id number] CONSULTING PHYSICIAN: JAY JAY LABOY MD REFERRING PHYSICIAN: JAY JAY LABOY MD DATE OF CONSULTATION: 07/30/2017 DIAGNOSES: 1. Unstable angina. 2. Coronary artery disease. 3. Previous coronary bypass graft surgery. 4. Hypertension. 5. Hyperlipidemia. 6. Paroxysmal atrial fibrillation. HISTORY OF PRESENT ILLNESS: Mr. Knox presents with unstable anginal symptomatology. He was seen in the office last week. We were planning on risk stratification versus cardiac catheterization. He is also on Coumadin anticoagulation, has aortic valve replacement. His last cardiac catheterization was with patency only of a CRYSTAL. REVIEW OF SYSTEMS: The patient reports easy bruising but reports no swollen glands. The patient reports no fever, no night sweats, no significant weight gain, no significant weight loss. No significant exercise tolerance. The patient reports no dry eyes, no irritation, no vision change. Patient reports no difficulty hearing and no ear pain. Patient reports no frequent nose bleeds or nose and sinus problems. Patient reports on arm pain on exertion. No shortness of breath while lying down. No history of heart murmur. Patient reports no cough, no wheezing or coughing up blood. Patient reports no abdominal pain, no vomiting. Normal appetite. No diarrhea and not vomiting blood. No nausea and no constipation. Patient reports no incontinence. No difficulty urinating. No hematuria. No increased frequency. Patient reports no muscle aches. No weakness, no arthralgias, no back pain. No swelling of the extremities. Patient reports no abnormal mole, no jaundice, no rashes. Reports no loss of consciousness. No weakness and no numbness. No seizures, dizziness, or headaches. The patient reports no depression, no sleep disturbance, feeling safe in a relationship and no alcohol abuse. Patient reports on fatigue. Reports no runny nose or sinus pressure. No itching, no hives, and no frequent sneezing. PHYSICAL EXAMINATION: GENERAL APPEARANCE: Well-nourished, well-developed, appears stated age. Level of distress, comfortable. PSYCHIATRIC: Mental status, alert, normal affect. Orientation, oriented to time, place and person. EYES: Lids and conjunctiva, noninjected. No discharge, no pallor. ENT: Lips, teeth, gums, normal dentition. Oropharynx, no cyanosis, no pallor. NECK: Carotid arteries, bilateral normal upstroke, no bruits, no thrills. JUGULAR VEINS: No jugular venous pressure or distention. CERVICAL LYMPH NODES: Nontender, nonenlarged. THYROID: Not enlarged. Nontender. No nodules. LUNGS: Respiratory effort, unlabored. CHEST: Normal curvature. No thoracic deformity. No chest wall tenderness. Percussion, resonant. Auscultation, clear. No wheezes, no rales, no rhonchi. CARDIOVASCULAR: Precordial exam, nondisplaced. No heaves or pericardial CONSULT REPORT [id number] GOODNERJAZMIN RAY thrills. Rate and rhythm, regular. Heart sounds, normal S1, normal S2. No S3, no gallop, no rub. Systolic murmur, not heard. Diastolic murmur, not heard. EXTREMITIES: No cyanosis, no edema. Peripheral pulses, full and equal in all extremities, except as noted. No bruits appreciated. ABDOMEN: Soft, nondistended. Normal aorta. No bruit. Nontender. No masses. Liver, nontender, no hepatomegaly. Spleen, nontender, no splenomegaly. MUSCULOSKELETAL: No joint tenderness. No joint swelling. No erythema. NEUROLOGICAL: Normal gait, normal strength, normal tone. SKIN: Warm and dry. OVERALL IMPRESSION: Unstable anginal. We will proceed with coronary angiography. Further care depends on the findings of the angiography. TRANSINT:[id number] Voice Confirmation ID: [id number] DOCUMENT ID: [id number] JAY JAY LABOY MD at 1656 CC: [id number] DICTATION DATE: 07/30/17 1201 BLUE PRINTS TRIMMER: 07/30/17 1257 DEP CLI 07/30/17 [facility] [address] [id number]
== END 2017-07-30 16:00 | disposition home or self-care (01) ==
LOC: D.ER 08:39 → D.CATH 08:39 → EDSTATUS 11:00 → D.CATH 16:00
PROVIDERS: Emergency Medicine
DX: I25.119 Atherosclerotic heart disease of native coronary artery with unspecified angina pectoris (principal); Z95.2 Presence of prosthetic heart valve; Z95.1 Presence of aortocoronary bypass graft; Z01.812 Encounter for preprocedural laboratory examination
CPT/HCPCS: 93455; C9600

== ENCOUNTER 2017-09-20 01:29 | Emergency (ER) | payer MEDICARE ==
[2017-05-22 12:32] VITALS: BMI 36.9
[~2017-09-20 01:29] MED LIST changes: +PLAVIX75 MG PO
== END 2017-09-20 03:55 ==
LOC: D.ER 01:29
DX: I46.9 Cardiac arrest, cause unspecified (principal); I50.9 Heart failure, unspecified; E11.9 Type 2 diabetes mellitus without complications; N19 Unspecified kidney failure